=== PATIENT | male | born 1965 | race African-American/Black ===

== ENCOUNTER 2016-12-15 22:03 | Emergency (ER) | payer OTHER ==
[~2016-12-15] VITALS: Ht 188 cm; Wt 68.0 kg
[~2016-12-15 22:03] MED LIST: DIPH25CA83 PO; HYDR2TAB34 PO; OLAN5TAB26 PO; ONDA4TAB51 PO; Olanzapine PO; P20 PO; QUET300T2 PO; SULF500T PO; TRAM50TA3 PO
[2016-12-15] MEDS ORDERED: MORPHINE SULFATE 4 MG/ML CPJ (NOT FOR IM USE) IV STA (23:07)
[2016-12-15] MEDS ORDERED: SODIUM CHLORIDE 0.9% 1,000 ML IV ONE (23:07)
[2016-12-15] MEDS ORDERED: ONDANSETRON HCL 4MG/2ML VIAL IV STA (23:07)
[2016-12-15 23:36] LABS: BASOPHILS % 1.1 % (0.0-2.0); EOSINOPHILS % 3.2 % (0.0-5.0); HEMATOCRIT. 40.4 % (42.0-52.0); HEMOGLOBIN. 13.4 g/dL (14.0-18.0); LYMPHOCYTES % 39.8 % (20.0-50.0); MEAN CORPUSCULAR HEMOGLOBIN 28.2 pg (28.0-32.0); MEAN CORPUSCULAR VOLUME 85.4 fL (80.0-94.0); MEAN PLATELET VOLUME 8.4 fl (7.4-10.4); MONOCYTES % 13.2 % (2.0-8.0); NEUTROPHILS % 42.7 % (40.0-76.0); PLATELET 229 x1000/uL (130-400); RED BLOOD CELL COUNT 4.73 mill/uL (4.7-6.1); RED CELL DISTRIBUTION WIDTH 14.6 % (11.6-14.6); WHITE BLOOD COUNT 5.8 x1000/uL (4.5-11.0)
[2016-12-15 23:36] LABS: CLARITY URINE CLEAR (CLEAR); COLOR URINE YELLOW (YELLOW); GLUCOSE URINE NEGATIVE (NEGATIVE); KETONES URINE NEGATIVE (NEGATIVE); LEUKOCYTE ESTERASE URINE NEGATIVE (NEGATIVE); NITRITE URINE NEGATIVE (NEGATIVE); OCCULT BLOOD URINE TRACE (NEGATIVE); PROTEIN URINE NEGATIVE (NEGATIVE); SPECIFIC GRAVITY URINE 1.019 (1.005-1.030); UROBILINOGEN URINE 0.2 E.U./dL (0.2-1.0)
[2016-12-15 23:44] LABS: ALANINE AMINOTRANSFERASE 24 IU/L (13-61); ALBUMIN 3.5 g/dL (3.4-5.0); ANION GAP 13; CALCIUM 8.5 mg/dL (8.5-10.1); CARBON DIOXIDE 28 mEq/L (21-32); CHLORIDE 106 mEq/L (98-107); INDEX HEMOLYSI 1 (1-3); INDEX ICTERIC 1 (1-4); INDEX LIPEMIC 1 (1-3); LIPASE 449 IU/L (73-393); UREA NITROGEN BLOOD 12 mg/dL (7-21); eGFR > 60 mL/min (>60)
[2016-12-15 23:54] LABS: PROTHROMBIN TIME 10.1 sec
[2016-12-16] MEDS ORDERED: MAGNESIUM/ALUMINUM HYDROXIDE/SIMETHICONE 30ML UDC PO ONE (00:15)
[2016-12-16] MEDS ORDERED: VISCOUS LIDOCAINE 2% 15 ML UDC MM ONE (00:15)
[2016-12-16] MEDS ORDERED: MORPHINE SULFATE 10 MG/ML CPJ IM ONE (00:15)
[2016-12-16] MEDS ORDERED: ONDANSETRON HCL 4MG/2ML VIAL IM ONE (00:15)
[2016-12-16 00:17] LABS: BACTERIA URINE NONE SEEN; SQUAMOUS EPITHELIAL CELL URINE FEW /lpf (RARE/1+); WBC URINE 0-2 /hpf (0-2)
[2016-12-16] MEDS ORDERED: ACETAMINOPHEN WITH CODEINE 300/30MG TABLET PO ONE (01:30)
[2016-12-16 02:34] VITALS: BP 120/59
== END 2016-12-16 02:36 | disposition home or self-care (01) ==
LOC: ER 22:59
DX: R10.9 Unspecified abdominal pain (principal); R33.9 Retention of urine, unspecified; K50.90 Crohn's disease, unspecified, without complications; I25.2 Old myocardial infarction; F17.200 Nicotine dependence, unspecified, uncomplicated; F10.10 Alcohol abuse, uncomplicated; F12.90 Cannabis use, unspecified, uncomplicated; Z86.73 Personal history of transient ischemic attack (TIA), and cerebral infarction without residual deficits
CPT/HCPCS: 36415; 51702; 71010; 80053; 81001; 83690; 85025; 85610; 96374; 96375; 99285; J2270; J2405; J7030; Z7610

== ENCOUNTER 2017-03-15 11:51 | Emergency (ER) | payer OTHER ==
[~2017-03-15] VITALS: Ht 188 cm; Wt 71.0 kg
[2017-03-15] MEDS ORDERED: FAMOTIDINE 20MG/2ML VIAL IV STA (12:44)
[2017-03-15] MEDS ORDERED: ONDANSETRON HCL 4MG/2ML VIAL IV STA (12:44)
[2017-03-15] MEDS ORDERED: SODIUM CHLORIDE 0.9% 1,000 ML IV ONE (12:44)
[2017-03-15] MEDS ORDERED: KETOROLAC 30MG/ML VIAL IV STA (12:44)
[2017-03-15 13:01] LABS: CLARITY URINE CLEAR (CLEAR); COLOR URINE YELLOW (YELLOW); GLUCOSE URINE NEGATIVE (NEGATIVE); KETONES URINE NEGATIVE (NEGATIVE); LEUKOCYTE ESTERASE URINE NEGATIVE (NEGATIVE); NITRITE URINE NEGATIVE (NEGATIVE); OCCULT BLOOD URINE TRACE (NEGATIVE); PH URINE >=9.0 (4.5-8.0); PROTEIN URINE NEGATIVE (NEGATIVE); SPECIFIC GRAVITY URINE 1.014 (1.005-1.030); UROBILINOGEN URINE 0.2 E.U./dL (0.2-1.0)
[2017-03-15 13:04] LABS: BACTERIA URINE NONE SEEN; CALCIUM PHOSPHATE CRYSTALS UR NONE SEEN /lpf; SQUAMOUS EPITHELIAL CELL URINE NONE SEEN /lpf (RARE/1+); WAXY CASTS URINE NONE SEEN /lpf; WBC URINE NONE SEEN /hpf (0-2); YEAST URINE NONE SEEN
[2017-03-15 13:24] LABS: BASOPHILS % 1.2 % (0.0-2.0); EOSINOPHILS % 1.7 % (0.0-5.0); HEMATOCRIT. 38.8 % (42.0-52.0); HEMOGLOBIN. 12.9 g/dL (14.0-18.0); LYMPHOCYTES % 32.5 % (20.0-50.0); MEAN CORPUSCULAR HEMOGLOBIN 28.5 pg (28.0-32.0); MEAN CORPUSCULAR HGB CONC 33.3 g/dL (31.0-37.0); MEAN CORPUSCULAR VOLUME 85.6 fL (80.0-94.0); MEAN PLATELET VOLUME 7.9 fl (7.4-10.4); MONOCYTES % 11.9 % (2.0-8.0); NEUTROPHILS % 52.7 % (40.0-76.0); PLATELET 233 x1000/uL (130-400); RED BLOOD CELL COUNT 4.53 mill/uL (4.7-6.1); RED CELL DISTRIBUTION WIDTH 14.1 % (11.6-14.6)
[2017-03-15 13:34] LABS: PROTHROMBIN TIME 10.4 sec
[2017-03-15 13:39] LABS: ALANINE AMINOTRANSFERASE 26 IU/L (13-61); ALBUMIN 3.5 g/dL (3.4-5.0); ANION GAP 10; CALCIUM 8.8 mg/dL (8.5-10.1); CARBON DIOXIDE 28 mEq/L (21-32); CHLORIDE 106 mEq/L (98-107); INDEX HEMOLYSI 1 (1-3); INDEX ICTERIC 1 (1-4); INDEX LIPEMIC 1 (1-3); LIPASE 86 IU/L (73-393); UREA NITROGEN BLOOD 8 mg/dL (7-21); eGFR > 60 mL/min (>60)
[2017-03-15] MEDS ORDERED: TRAMADOL 50MG TABLET PO ONE (15:30)
[2017-03-15 15:33] VITALS: BP 140/80
== END 2017-03-15 16:44 | disposition home or self-care (01) ==
LOC: ER 12:25
DX: N20.0 Calculus of kidney (principal); K59.00 Constipation, unspecified; F20.9 Schizophrenia, unspecified; I25.2 Old myocardial infarction; F17.200 Nicotine dependence, unspecified, uncomplicated; F12.10 Cannabis abuse, uncomplicated; F41.9 Anxiety disorder, unspecified; K50.90 Crohn's disease, unspecified, without complications; Z86.73 Personal history of transient ischemic attack (TIA), and cerebral infarction without residual deficits; Z79.899 Other long term (current) drug therapy
CPT/HCPCS: 36415; 74176; 80053; 81001; 83690; 85025; 85610; 96361; 96374; 96375; 99285; J1885; J2405; J3490; J7030; Z7610

== ENCOUNTER 2017-06-19 22:52 | Emergency (ER) | payer OTHER ==
[~2017-06-19] VITALS: Ht 182.9 cm; Wt 76.0 kg
[~2017-06-19 22:52] MED LIST changes: -HYDR2TAB34 PO; +HYDR2TAB4 PO
[2017-06-20] MEDS ORDERED: ONDANSETRON HCL 4MG/2ML VIAL IV STA (01:22)
[2017-06-20] MEDS ORDERED: KETOROLAC 30MG/ML VIAL IV STA (01:22)
[2017-06-20] MEDS ORDERED: VANCOMYCIN 1 G PREMIX 200 ML IV ONE (01:30)
[2017-06-20 03:34] VITALS: BP 118/57
== END 2017-06-20 08:02 | disposition home or self-care (01) ==
LOC: ER 06-20 08:02
DX: L02.01 Cutaneous abscess of face (principal); F20.9 Schizophrenia, unspecified; K50.90 Crohn's disease, unspecified, without complications; I25.2 Old myocardial infarction; F12.10 Cannabis abuse, uncomplicated; F17.200 Nicotine dependence, unspecified, uncomplicated; Z86.73 Personal history of transient ischemic attack (TIA), and cerebral infarction without residual deficits; Z98.890 Other specified postprocedural states
CPT/HCPCS: 96365; 96366; 96375; 99285; J1885; J2405; J3370; Z7610

== ENCOUNTER 2017-07-21 11:57 | Inpatient (IN) | payer MEDICAID, OTHER ==
[2017-07-21] VITALS: BP 129/68
[~2017-07-21] VITALS: Ht 188 cm; Wt 65.3 kg
[2017-07-21] MEDS ORDERED: SODIUM CHLORIDE 0.9% 1,000 ML IV ONE (12:36)
[2017-07-21 12:59] LABS: BASOPHILS % 0.9 % (0.0-2.0); EOSINOPHILS % 0.5 % (0.0-5.0); HEMATOCRIT. 38.9 % (42.0-52.0); LYMPHOCYTES % 26.7 % (20.0-50.0); MEAN CORPUSCULAR HEMOGLOBIN 28.4 pg (28.0-32.0); MEAN CORPUSCULAR VOLUME 85.1 fL (80.0-94.0); MEAN PLATELET VOLUME 7.8 fl (7.4-10.4); MONOCYTES % 11.7 % (2.0-8.0); NEUTROPHILS % 60.2 % (40.0-76.0); PLATELET 208 x1000/uL (130-400); RED BLOOD CELL COUNT 4.58 mill/uL (4.7-6.1); RED CELL DISTRIBUTION WIDTH 15.2 % (11.6-14.6)
[2017-07-21 13:09] LABS: PROTHROMBIN TIME 10.7 sec (9.4-11.6)
[2017-07-21 13:20] LABS: CARBON DIOXIDE 24 mEq/L (21-32); CHLORIDE 110 mEq/L (98-107)
[2017-07-21] MEDS ORDERED: ONDANSETRON HCL 4MG/2ML VIAL IV ONE (13:45)
[2017-07-21] MEDS ORDERED: MORPHINE SULFATE 4 MG/ML CPJ (NOT FOR IM USE) IV ONE (13:45)
[2017-07-21] MEDS ORDERED: DIPHENHYDRAMINE 50MG/ML VIAL ONE (14:07)
[2017-07-21] MEDS ORDERED: HYDROMORPHONE HCL/PF 2MG/ML CPJ IV ONE ×2 (15:00→18:00)
[2017-07-21] MEDS ORDERED: DIPHENHYDRAMINE 50MG/ML VIAL IV ONE ×2 (15:00→18:00)
[2017-07-21 17:59] LABS: CLARITY URINE CLEAR (CLEAR); COLOR URINE YELLOW (YELLOW); GLUCOSE URINE NEGATIVE (NEGATIVE); KETONES URINE 1+ (NEGATIVE); LEUKOCYTE ESTERASE URINE 1+ (NEGATIVE); NITRITE URINE NEGATIVE (NEGATIVE); OCCULT BLOOD URINE 2+ (NEGATIVE); PH URINE 5.5 (4.5-8.0); PROTEIN URINE NEGATIVE (NEGATIVE); UROBILINOGEN URINE 0.2 E.U./dL (0.2-1.0)
[2017-07-21] MEDS ORDERED: METOCLOPRAMIDE HCL 10MG/2ML VIAL IV ONE (18:00)
[2017-07-21] MEDS ORDERED: HYDROMORPHONE HCL/PF 2MG/ML CPJ IV NR (18:15)
[2017-07-21] MEDS ORDERED: LEVOFLOXACIN 500MG PREMIX 100 ML IV ONE (20:00)
[2017-07-21] MEDS ORDERED: LORAZEPAM 2MG/ML CPJ IV ONE (20:00)
[2017-07-21] MEDS ORDERED: METRONIDAZOLE 500 MG PREMIX 100 ML IV ONE (20:00)
[2017-07-21 22:00] VITALS: BP 126/75
[2017-07-21 22:30] VITALS: BP 126/75
[2017-07-21] MEDS ORDERED: ONDANSETRON HCL 4MG/2ML VIAL IV PRN (23:45)
[2017-07-21] MEDS ORDERED: IPRATROPIUM/ALBUTEROL 0.5-3(2.5)MG/3ML NEB INH PRN (23:45)
[2017-07-21] MEDS ORDERED: ACETAMINOPHEN 325MG TABLET PO PRN (23:45)
[2017-07-21] MEDS ORDERED: MAGNESIUM/ALUMINUM HYDROXIDE/SIMETHICONE 30ML UDC PO PRN (23:45)
[2017-07-21] MEDS ORDERED: CLONIDINE 0.1MG TABLET PO PRN (23:45)
[2017-07-21] MEDS ORDERED: HYDROCODONE/ACETAMINOPHEN 5/325MG TABLET PO PRN (23:45)
[2017-07-22] MEDS: MESALAMINE 1000MG SUPPOSITORY PR SCH ×3 (01:42→17:07)
[2017-07-22] MEDS: SODIUM CHLORIDE 0.9% 1,000 ML IV SCH ×2 (01:43→23:01)
[2017-07-22 04:00] VITALS: BP 130/67
[2017-07-22 07:34] LABS: BASOPHILS % 0.8 % (0.0-2.0); HEMATOCRIT. 37.5 % (42.0-52.0); HEMOGLOBIN. 12.9 g/dL (14.0-18.0); LYMPHOCYTES % 27.7 % (20.0-50.0); MEAN CORPUSCULAR HEMOGLOBIN 29.3 pg (28.0-32.0); MEAN PLATELET VOLUME 8.7 fl (7.4-10.4); MONOCYTES % 14.5 % (2.0-8.0); PLATELET 187 x1000/uL (130-400); RED BLOOD CELL COUNT 4.41 mill/uL (4.7-6.1); RED CELL DISTRIBUTION WIDTH 15.3 % (11.6-14.6)
[2017-07-22 09:14] LABS: C REACTIVE PROTEIN QUANT 1.1 mg/L (0.0-3.0); CARBON DIOXIDE 26 mEq/L (21-32); CHLORIDE 105 mEq/L (98-107); HDL CHOLESTEROL 75 mg/dL (40-59); LDL CHOLESTEROL 69 mg/dL (5-100)
[2017-07-22] MEDS ORDERED: MORPHINE SULFATE 2 MG/ML CPJ (NOT FOR IM USE) IV PRN (09:30)
[2017-07-22] MEDS: DIPHENHYDRAMINE 25MG CAPSULE PO PRN ×2 (10:52→18:39)
[2017-07-22 11:04] LABS: *AMPHETAMINES SCREEN URINE NEGATIVE (NEGATIVE); *BARBITURATES SCREEN URINE PRESUMTIVE POSITIVE (NEGATIVE); *BENZODIAZEPINES SCREEN URINE NEGATIVE (NEGATIVE); *COCAINE SCREEN URINE NEGATIVE (NEGATIVE); CANNABINOID URINE SCREEN PRESUMTIVE POSITIVE (NEGATIVE); METHADONE URINE SCREEN NEGATIVE (NEGATIVE); OPIATES URINE SCREEN PRESUMTIVE POSITIVE (NEGATIVE); PHENCYCLIDINE URINE SCREEN NEGATIVE (NEGATIVE)
[2017-07-22] MEDS ORDERED: OLANZAPINE PO SCH (11:45)
[2017-07-22] MEDS ORDERED: PREDNISONE 20MG TABLET PO SCH (11:45)
[2017-07-22] MEDS: SULFASALAZINE 500MG TABLET PO SCH ×2 (11:58→17:07)
[2017-07-22 12:00] VITALS: BP 115/79
[2017-07-22] MEDS ORDERED: GLYCOPYRROLATE 0.2 MG/ML 2ML VIAL ONE (12:57)
[2017-07-22] MEDS ORDERED: DEXAMETHASONE 4MG/ML 1ML VIAL ONE (12:57)
[2017-07-22] MEDS: HYDROCODONE/ACETAMINOPHEN 10/325MG TABLET PO PRN ×3 (13:07→22:13)
[2017-07-22] MEDS: METHYLPREDNISOLONE SOD SUCC 40 MG/ML VIAL IV SCH ×2 (13:20→22:54)
[2017-07-22] MEDS ORDERED: ONDANSETRON HCL 4MG/2ML VIAL ONE (15:16)
[2017-07-22 16:00] VITALS: BP 120/79
[2017-07-22 20:00] VITALS: BP 126/57
[2017-07-22] MEDS ORDERED: OLANZAPINE 5MG TABLET PO SCH (21:00)
[2017-07-22] MEDS ORDERED: LEVOFLOXACIN 500MG PREMIX 100 ML IV SCH (21:00)
[2017-07-22] MEDS ORDERED: QUETIAPINE FUMARATE 100MG TABLET PO SCH (21:00)
[2017-07-22] MEDS: QUETIAPINE FUMARATE 100MG TABLET PO SCH (22:12)
[2017-07-23] VITALS: BP 97/58
[2017-07-23] MEDS: DIPHENHYDRAMINE 25MG CAPSULE PO PRN (00:32)
[2017-07-23 04:00] VITALS: BP 117/78
[2017-07-23] MEDS: METHYLPREDNISOLONE SOD SUCC 40 MG/ML VIAL IV SCH ×2 (05:25→14:00)
[2017-07-23] MEDS: MESALAMINE 1000MG SUPPOSITORY PR SCH (05:25)
[2017-07-23] MEDS: HYDROCODONE/ACETAMINOPHEN 10/325MG TABLET PO PRN ×2 (06:00→11:58)
[2017-07-23 08:00] VITALS: BP 101/54
[2017-07-23 09:21] LABS: BASOPHILS % 0.4 % (0.0-2.0); HEMATOCRIT. 41.9 % (42.0-52.0); HEMOGLOBIN. 13.8 g/dL (14.0-18.0); LYMPHOCYTES % 16.5 % (20.0-50.0); MEAN CORPUSCULAR HEMOGLOBIN 28.2 pg (28.0-32.0); MONOCYTES % 7.5 % (2.0-8.0); NEUTROPHILS % 75.6 % (40.0-76.0); RED BLOOD CELL COUNT 4.88 mill/uL (4.7-6.1); RED CELL DISTRIBUTION WIDTH 15.4 % (11.6-14.6)
[2017-07-23 09:32] LABS: CARBON DIOXIDE 23 mEq/L (21-32); CHLORIDE 103 mEq/L (98-107)
[2017-07-23] MEDS: QUETIAPINE FUMARATE 100MG TABLET PO SCH (10:00)
[2017-07-23] MEDS: SULFASALAZINE 500MG TABLET PO SCH ×2 (10:00→13:00)
[2017-07-23] MEDS ORDERED: P20 PO (13:58)
[2017-07-23] MEDS ORDERED: SULF500T PO (13:58)
[2017-07-23 15:03] VITALS: BP 99/54
== END 2017-07-23 15:30 | disposition home or self-care (01) | DRG 245 ==
LOC: ER 12:47 → 5WST 20:06 → ENRESERV 21:20
PROVIDERS: ADMIT Internal Medicine; ATTEND Internal Medicine
DX: K50.90 Crohn's disease, unspecified, without complications (principal); D63.8 Anemia in other chronic diseases classified elsewhere; N39.0 Urinary tract infection, site not specified; F12.90 Cannabis use, unspecified, uncomplicated; K62.89 Other specified diseases of anus and rectum; E78.5 Hyperlipidemia, unspecified; F20.9 Schizophrenia, unspecified; E78.00 Pure hypercholesterolemia, unspecified; F17.200 Nicotine dependence, unspecified, uncomplicated; Z86.73 Personal history of transient ischemic attack (TIA), and cerebral infarction without residual deficits; Z90.49 Acquired absence of other specified parts of digestive tract; Z72.89 Other problems related to lifestyle; I25.2 Old myocardial infarction; Z79.899 Other long term (current) drug therapy; K62.5 Hemorrhage of anus and rectum
CPT/HCPCS: 36415; 74176; 80048; 80053; 80061; 80305; 81001; 82270; 83690; 83735; 84443; 85025; 85610; 85651; 86140; 86850; 86900; 87015; 87040; 87045; 87086; 87427; 87449; 87493; 93970; 96361; 96365; 96375; 96376; 99285; J1100; J1170; J1200; J1956; J2060; J2270; J2405; J2765; J2920; J3490; J7030; J7512; Q0163

== ENCOUNTER 2017-11-07 16:05 | Emergency (ER) | payer MEDICAID ==
[~2017-11-07] VITALS: Ht 188 cm; Wt 68.8 kg
[~2017-11-07 16:05] MED LIST changes: -HYDR2TAB4 PO
[2017-11-07] MEDS ORDERED: KETOROLAC 60MG/2ML VIAL IM ONE (17:15)
[2017-11-07 17:45] LABS: BASOPHILS % 1.2 % (0.0-2.0); EOSINOPHILS % 2.9 % (0.0-5.0); HEMATOCRIT. 37.5 % (42.0-52.0); HEMOGLOBIN. 12.4 g/dL (14.0-18.0); LYMPHOCYTES % 31.8 % (20.0-50.0); MEAN CORPUSCULAR HEMOGLOBIN 28.2 pg (28.0-32.0); MEAN CORPUSCULAR VOLUME 85.3 fL (80.0-94.0); MEAN PLATELET VOLUME 7.7 fl (7.4-10.4); MONOCYTES % 12.4 % (2.0-8.0); NEUTROPHILS % 51.7 % (40.0-76.0); PLATELET 222 x1000/uL (130-400)
[2017-11-07 17:52] LABS: PROTHROMBIN TIME 10.2 sec (9.4-11.6)
[2017-11-07 18:01] LABS: CARBON DIOXIDE 26 mEq/L (21-32); CHLORIDE 106 mEq/L (98-107); ETHANOL BLOOD < 10 mg/dL; TROPONIN I < 0.02 ng/mL (0.00-0.04)
[2017-11-07 18:21] VITALS: BP 124/66
[2017-11-07] MEDS ORDERED: ACETAMINOPHEN 650MG/20.3ML UDC PO ONE (18:30)
== END 2017-11-07 18:51 | disposition left against medical advice (07) ==
LOC: ER 16:39 → CANBEDREQ 11-08 01:18
DX: I63.9 Cerebral infarction, unspecified (principal); R51 Headache; R20.0 Anesthesia of skin; R53.1 Weakness; R47.81 Slurred speech; F12.10 Cannabis abuse, uncomplicated; E78.00 Pure hypercholesterolemia, unspecified; I25.2 Old myocardial infarction; F20.9 Schizophrenia, unspecified; Z86.73 Personal history of transient ischemic attack (TIA), and cerebral infarction without residual deficits
CPT/HCPCS: 36415; 70450; 71010; 73030; 80053; 82962; 84484; 85025; 85610; 93005; 96372; 99285; G0482; J1885; Z7610

== ENCOUNTER 2018-06-01 11:11 | Emergency (ER) | payer MEDICAID ==
[~2018-06-01] VITALS: Ht 188 cm; Wt 66.0 kg
[2018-06-01 11:45] LABS: BASOPHILS % 0.9 % (0.0-2.0); EOSINOPHILS % 0.7 % (0.0-5.0); HEMATOCRIT. 39.1 % (42.0-52.0); HEMOGLOBIN. 12.9 g/dL (14.0-18.0); LYMPHOCYTES % 27.4 % (20.0-50.0); MEAN CORPUSCULAR HEMOGLOBIN 28.7 pg (28.0-32.0); MEAN CORPUSCULAR VOLUME 86.7 fL (80.0-94.0); MEAN PLATELET VOLUME 8.1 fl (7.4-10.4); MONOCYTES % 9.6 % (2.0-8.0); NEUTROPHILS % 61.4 % (40.0-76.0); PLATELET 228 x1000/uL (130-400); RED BLOOD CELL COUNT 4.51 mill/uL (4.7-6.1); RED CELL DISTRIBUTION WIDTH 14.7 % (11.6-14.6)
[2018-06-01 11:49] LABS: CHLORIDE 106 mEq/L (98-107)
[2018-06-01] MEDS ORDERED: ALBUTEROL (0.083%) 2.5MG/3ML NEB HHN STA (12:51)
[2018-06-01] MEDS ORDERED: IPRATROPIUM BROMIDE (0.02%) 0.5MG/2.5ML NEB HHN STA (12:51)
[2018-06-01] MEDS ORDERED: METHYLPREDNISOLONE SOD SUCC 125 MG/2 ML VIAL IV ONE (13:00)
[2018-06-01 13:06] LABS: CLARITY URINE CLEAR (CLEAR); COLOR URINE PALE YELLOW (YELLOW); KETONES URINE NEGATIVE (NEGATIVE); LEUKOCYTE ESTERASE URINE NEGATIVE (NEGATIVE); NITRITE URINE NEGATIVE (NEGATIVE); OCCULT BLOOD URINE TRACE (NEGATIVE); PROTEIN URINE NEGATIVE (NEGATIVE); SPECIFIC GRAVITY URINE 1.006 (1.005-1.030); UROBILINOGEN URINE 0.2 E.U./dL (0.2-1.0)
[2018-06-01 13:31] LABS: CHLORIDE 105 mEq/L (98-107)
[2018-06-01] MEDS ORDERED: KETOROLAC 30MG/ML VIAL IV ONE (13:45)
[2018-06-01] MEDS ORDERED: LORAZEPAM 2MG/ML CPJ IV ONE ×2 (13:45→18:15)
[2018-06-01] MEDS ORDERED: ASPIRIN 325MG EC TABLET PO ONE (15:45)
[2018-06-01] MEDS ORDERED: NITROGLYCERIN OINT 1GM/INCH UDPKT TD ONE (18:15)
[2018-06-01] MEDS ORDERED: MORPHINE SULFATE 2 MG/ML CPJ (NOT FOR IM USE) IV ONE (18:15)
[2018-06-01] MEDS ORDERED: MORPHINE SULFATE 4 MG/ML CPJ (NOT FOR IM USE) IV ONE (18:30)
[2018-06-01 22:00] VITALS: BP 108/62
[2018-06-01] MEDS ORDERED: MORPHINE SULFATE 4 MG/ML CPJ (NOT FOR IM USE) IV PRN (23:15)
== END 2018-06-02 00:10 | disposition left against medical advice (07) ==
LOC: ER 11:38 → EDBEDREQTM 18:21 → EDBEDREQ 18:21 → ENRESERV 23:04 → CANRESERV 23:04 → EDBEDREQSVC 23:08 → ER 06-02 00:10 → CANBEDREQ 06-03 12:09
DX: J44.1 Chronic obstructive pulmonary disease with (acute) exacerbation (principal); J45.909 Unspecified asthma, uncomplicated; R07.89 Other chest pain; R79.89 Other specified abnormal findings of blood chemistry; I10 Essential (primary) hypertension; E78.00 Pure hypercholesterolemia, unspecified; F20.89 Other schizophrenia; F17.200 Nicotine dependence, unspecified, uncomplicated; F12.10 Cannabis abuse, uncomplicated; Z79.82 Long term (current) use of aspirin
CPT/HCPCS: 36415; 71045; 80053; 81003; 83605; 83690; 83880; 84484; 85025; 87040; 93005; 94640; 96374; 96375; 96376; 99285; C1893; J1885; J2060; J2270; J2930; J7611; Z7610

== ENCOUNTER 2018-06-11 18:29 | Inpatient (IN) | payer MEDICAID ==
[~2018-06-11] VITALS: Ht 172.7 cm; Wt 69.2 kg
[2018-06-11 20:02] LABS: BASOPHILS % 0.8 % (0.0-2.0); EOSINOPHILS % 0.9 % (0.0-5.0); HEMATOCRIT. 35.4 % (42.0-52.0); HEMOGLOBIN. 11.9 g/dL (14.0-18.0); LYMPHOCYTES % 42.4 % (20.0-50.0); MEAN CORPUSCULAR HEMOGLOBIN 28.7 pg (28.0-32.0); MEAN CORPUSCULAR VOLUME 85.6 fL (80.0-94.0); MEAN PLATELET VOLUME 8.2 fl (7.4-10.4); NEUTROPHILS % 44.9 % (40.0-76.0); PLATELET 241 x1000/uL (130-400); RED BLOOD CELL COUNT 4.14 mill/uL (4.7-6.1); RED CELL DISTRIBUTION WIDTH 14.3 % (11.6-14.6)
[2018-06-11 20:07] LABS: CHLORIDE 108 mEq/L (98-107)
[2018-06-11 20:10] LABS: PROTHROMBIN TIME 10.1 sec (9.4-11.6)
[2018-06-11] MEDS ORDERED: DIAZEPAM 5 MG TABLET PO ONE (20:30)
[2018-06-11] MEDS ORDERED: ENOXAPARIN 100MG/ML SYR SUBCUT ONE (22:30)
[2018-06-11] MEDS ORDERED: DIPHENHYDRAMINE 50MG/ML VIAL IV ONE (22:30)
[2018-06-11] MEDS ORDERED: ASPIRIN 81MG TABLET PO ONE (22:30)
[2018-06-12] VITALS (10 sets, daily range): BP systolic 77–145; BP diastolic 46–83
[2018-06-12] MEDS ORDERED: RISP2TAB22 PO (01:24)
[2018-06-12] MEDS: NITROGLYCERIN OINT 1GM/INCH UDPKT TD SCH ×3 (05:34→21:07)
[2018-06-12] MEDS: MORPHINE SULFATE 4 MG/ML CPJ (NOT FOR IM USE) IV PRN ×3 (05:35→17:55)
[2018-06-12] MEDS ORDERED: MORPHINE SULFATE 4 MG/ML CPJ (NOT FOR IM USE) IV NR (06:53)
[2018-06-12 06:54] LABS: BASOPHILS % 1.3 % (0.0-2.0); EOSINOPHILS % 2.1 % (0.0-5.0); HEMATOCRIT. 37.4 % (42.0-52.0); HEMOGLOBIN. 12.5 g/dL (14.0-18.0); LYMPHOCYTES % 49.5 % (20.0-50.0); MEAN CORPUSCULAR HEMOGLOBIN 28.6 pg (28.0-32.0); MEAN CORPUSCULAR VOLUME 85.7 fL (80.0-94.0); MEAN PLATELET VOLUME 8.7 fl (7.4-10.4); MONOCYTES % 11.1 % (2.0-8.0); PLATELET 225 x1000/uL (130-400); RED BLOOD CELL COUNT 4.36 mill/uL (4.7-6.1); RED CELL DISTRIBUTION WIDTH 14.3 % (11.6-14.6)
[2018-06-12] MEDS: RISPERIDONE 1MG TABLET PO SCH ×2 (06:58→21:06)
[2018-06-12 07:27] LABS: CHLORIDE 108 mEq/L (98-107)
[2018-06-12] MEDS: ASPIRIN 325MG EC TABLET PO SCH (08:40)
[2018-06-12] MEDS: METOPROLOL TARTRATE 50MG TABLET PO SCH ×2 (08:40→21:07)
[2018-06-12] MEDS ORDERED: ENOXAPARIN 60MG/0.6ML SYR SUBCUT SCH (09:00)
[2018-06-12] MEDS ORDERED: LIDOCAINE HCL 1% 20ML VIAL (Pyxis) INJ ONE (13:51)
[2018-06-12] MEDS ORDERED: IOHEXOL-350 100 ML BOTTLE ONE (15:02)
[2018-06-12] MEDS: DEXT 5%/0.45% NACL 1000ML 1,000 ML IV SCH (17:16)
[2018-06-12] MEDS: DIPHENHYDRAMINE 50MG/ML VIAL IV PRN (21:06)
[2018-06-12] MEDS: ATORVASTATIN CALCIUM 20MG TABLET PO SCH (21:07)
[2018-06-13] VITALS (12 sets, daily range): BP systolic 98–141; BP diastolic 20–88
[2018-06-13] MEDS: MORPHINE SULFATE 4 MG/ML CPJ (NOT FOR IM USE) IV PRN ×4 (00:39→22:43)
[2018-06-13] MEDS: DEXT 5%/0.45% NACL 1000ML 1,000 ML IV SCH ×3 (01:30→20:12)
[2018-06-13] MEDS: NITROGLYCERIN OINT 1GM/INCH UDPKT TD SCH ×3 (06:00→22:00)
[2018-06-13 06:24] LABS: BASOPHILS % 1.2 % (0.0-2.0); EOSINOPHILS % 1.7 % (0.0-5.0); HEMATOCRIT. 35.5 % (42.0-52.0); HEMOGLOBIN. 11.8 g/dL (14.0-18.0); LYMPHOCYTES % 57.4 % (20.0-50.0); MEAN CORPUSCULAR HEMOGLOBIN 28.6 pg (28.0-32.0); MEAN CORPUSCULAR VOLUME 86.4 fL (80.0-94.0); MEAN PLATELET VOLUME 8.9 fl (7.4-10.4); MONOCYTES % 9.5 % (2.0-8.0); NEUTROPHILS % 30.2 % (40.0-76.0); PLATELET 208 x1000/uL (130-400); RED BLOOD CELL COUNT 4.11 mill/uL (4.7-6.1); RED CELL DISTRIBUTION WIDTH 14.2 % (11.6-14.6)
[2018-06-13 06:51] LABS: CHLORIDE 106 mEq/L (98-107)
[2018-06-13] MEDS ORDERED: ENOXAPARIN 40MG/0.4ML SYR SUBCUT SCH (09:00)
[2018-06-13] MEDS: METOPROLOL TARTRATE 50MG TABLET PO SCH ×2 (09:00→21:00)
[2018-06-13] MEDS: RISPERIDONE 1MG TABLET PO SCH ×2 (09:28→20:11)
[2018-06-13] MEDS: ASPIRIN 325MG EC TABLET PO SCH (09:28)
[2018-06-13] MEDS ORDERED: ENOXAPARIN 30MG/0.3ML SYR SUBCUT SCH (11:30)
[2018-06-13] MEDS: DIPHENHYDRAMINE 50MG/ML VIAL IV PRN (13:14)
[2018-06-13] MEDS: ENOXAPARIN 80MG/0.8ML SYR SUBCUT SCH (20:11)
[2018-06-13] MEDS: ATORVASTATIN CALCIUM 20MG TABLET PO SCH (22:31)
[2018-06-14] VITALS (11 sets, daily range): BP systolic 110–139; BP diastolic 58–89
[2018-06-14] MEDS: MORPHINE SULFATE 4 MG/ML CPJ (NOT FOR IM USE) IV PRN ×3 (04:04→18:53)
[2018-06-14] MEDS: NITROGLYCERIN OINT 1GM/INCH UDPKT TD SCH ×2 (05:35→13:39)
[2018-06-14 06:36] LABS: EOSINOPHILS % 2.6 % (0.0-5.0); HEMATOCRIT. 36.7 % (42.0-52.0); HEMOGLOBIN. 12.2 g/dL (14.0-18.0); LYMPHOCYTES % 53.8 % (20.0-50.0); MEAN CORPUSCULAR HEMOGLOBIN 28.5 pg (28.0-32.0); MEAN CORPUSCULAR VOLUME 85.9 fL (80.0-94.0); MEAN PLATELET VOLUME 8.7 fl (7.4-10.4); MONOCYTES % 11.1 % (2.0-8.0); NEUTROPHILS % 31.5 % (40.0-76.0); PLATELET 209 x1000/uL (130-400); RED BLOOD CELL COUNT 4.27 mill/uL (4.7-6.1)
[2018-06-14] MEDS: DEXT 5%/0.45% NACL 1000ML 1,000 ML IV SCH (06:44)
[2018-06-14 07:05] LABS: CHLORIDE 105 mEq/L (98-107)
[2018-06-14] MEDS: METOPROLOL TARTRATE 50MG TABLET PO SCH (08:28)
[2018-06-14] MEDS: ASPIRIN 325MG EC TABLET PO SCH (08:29)
[2018-06-14] MEDS: RISPERIDONE 1MG TABLET PO SCH (08:29)
[2018-06-14] MEDS: ENOXAPARIN 80MG/0.8ML SYR SUBCUT SCH (08:29)
[2018-06-14] MEDS ORDERED: OMEPRAZOLE 20MG CAPSULE EXTENDED RELEASE PO SCH (09:00)
[2018-06-14] MEDS ORDERED: POTASSIUM CHLORIDE 20MEQ TABLET SR PO NR (09:00)
[2018-06-14] MEDS: DIPHENHYDRAMINE 50MG/ML VIAL IV PRN (13:39)
[2018-06-14] MEDS ORDERED: LORAZEPAM 2MG/ML CPJ IV PRN (19:00)
[2018-06-14] MEDS ORDERED: DIPHENHYDRAMINE 50MG/ML VIAL IV PRN (20:00)
[2018-06-14] MEDS ORDERED: ATORVASTATIN CALCIUM 40MG TABLET PO SCH (21:00)
== END 2018-06-14 20:21 | disposition left against medical advice (07) | DRG 190 ==
LOC: ER 18:29 → 3WST 22:32 → ENRESERV 23:11
PROVIDERS: ADMIT Internal Medicine; ATTEND Internal Medicine
PROC: 02HV33Z Insertion of Infusion Device into Superior Vena Cava, Percutaneous Approach (ICD-10-PCS; principal; 2018-06-11)
PROC: B548ZZA Ultrasonography of Superior Vena Cava, Guidance (ICD-10-PCS; 2018-06-11)
PROC: B5181ZA Fluoroscopy of Superior Vena Cava using Low Osmolar Contrast, Guidance (ICD-10-PCS; 2018-06-11)
DX: I21.4 Non-ST elevation (NSTEMI) myocardial infarction (principal); E87.8 Other disorders of electrolyte and fluid balance, not elsewhere classified; K50.90 Crohn's disease, unspecified, without complications; G90.8 Other disorders of autonomic nervous system; F20.9 Schizophrenia, unspecified; I10 Essential (primary) hypertension; J45.909 Unspecified asthma, uncomplicated; E78.5 Hyperlipidemia, unspecified; F17.210 Nicotine dependence, cigarettes, uncomplicated; F12.90 Cannabis use, unspecified, uncomplicated; D64.9 Anemia, unspecified; E78.00 Pure hypercholesterolemia, unspecified; J44.9 Chronic obstructive pulmonary disease, unspecified
CPT/HCPCS: 36415; 36569; 70551; 71045; 71275; 74176; 76937; 77001; 80048; 80053; 80061; 83880; 84443; 84484; 85025; 85610; 93005; 93306; 93880; 93970; 93971; 96372; 96374; 99291; C1725; J1200; J1650; J2270; J3490; Q9967

== ENCOUNTER 2019-09-03 12:29 | Inpatient (IN) | payer MEDICAID ==
[~2019-09-03] VITALS: Ht 188 cm; Wt 65.3 kg
[~2019-09-03 12:29] MED LIST changes: +RISP2TAB22 PO
[2019-09-03] MEDS ORDERED: ONDANSETRON HCL 4MG/2ML INJ IV STA (13:52)
[2019-09-03] MEDS ORDERED: MORPHINE SULFATE 4 MG/ML CPJ (NOT FOR IM USE) IV STA (13:52)
[2019-09-03] MEDS ORDERED: NITROGLYCERIN 0.4MG TABLET SL SL PRN (14:00)
[2019-09-03] MEDS ORDERED: ASPIRIN 81MG TABLET PO ONE (14:00)
[2019-09-03] MEDS ORDERED: HEPARIN 25,000 UNITS PREMIX 500 ML IV ONE (14:30)
[2019-09-03 14:44] LABS: BASOPHILS % 0.9 % (0.0-2.0); EOSINOPHILS % 0.3 % (0.0-5.0); HEMATOCRIT. 37.8 % (42.0-52.0); HEMOGLOBIN. 12.5 g/dL (14.0-18.0); LYMPHOCYTES % 37.1 % (20.0-50.0); MEAN CORPUSCULAR HEMOGLOBIN 28.8 pg (28.0-32.0); MEAN CORPUSCULAR VOLUME 86.9 fL (80.0-94.0); MEAN PLATELET VOLUME 8.4 fl (7.4-10.4); NEUTROPHILS % 51.7 % (40.0-76.0); PLATELET 217 x1000/uL (130-400); RED BLOOD CELL COUNT 4.35 mill/uL (4.7-6.1); RED CELL DISTRIBUTION WIDTH 14.4 % (11.6-14.6)
[2019-09-03 14:50] LABS: CHLORIDE 107 mEq/L (98-107)
[2019-09-03 14:51] LABS: PARTIAL THROMBOPLASTIN TIME 25.9 sec (23.4-31.0); PROTHROMBIN TIME 10.3 sec (9.6-11.0)
[2019-09-03 14:54] LABS: ETHANOL BLOOD < 10 mg/dL
[2019-09-03] MEDS ORDERED: HEPARIN 25,000 UNITS PREMIX 500 ML IV SCH (15:15)
[2019-09-03] MEDS ORDERED: HEPARIN 60 UNITS/KG BOLUS IV SCH ×2 (15:15)
[2019-09-03] MEDS ORDERED: HEPARIN BOLUS PRN aPTT <30 IV ×2 (15:30)
[2019-09-03] MEDS ORDERED: HEPARIN BOLUS PRN aPTT 30-44 IV ×2 (15:30)
[2019-09-03] MEDS ORDERED: MORPHINE SULFATE 4 MG/ML CPJ (NOT FOR IM USE) IV ONE (16:00)
[2019-09-03 17:30] VITALS: BP 113/74
[2019-09-03 18:00] VITALS: BP 113/75
[2019-09-03] MEDS ORDERED: ONDANSETRON HCL 4MG/2ML INJ IV PRN ×2 (18:45→20:15)
[2019-09-03] MEDS: HYDROMORPHONE HCL/PF 2MG/ML CPJ IM PRN (19:56)
[2019-09-03 20:00] VITALS: BP 133/77
[2019-09-03] MEDS ORDERED: MORPHINE SULFATE 2 MG/ML CPJ (NOT FOR IM USE) IV PRN (20:15)
[2019-09-03] MEDS ORDERED: QUETIAPINE FUMARATE 50MG TABLET PO SCH (21:00)
[2019-09-03] MEDS: RISPERIDONE 1MG TABLET PO SCH (21:05)
[2019-09-03] MEDS: METOPROLOL TARTRATE 25MG TABLET PO SCH (21:06)
[2019-09-03 22:00] VITALS: BP 122/66
[2019-09-03] MEDS ORDERED: DIPHENHYDRAMINE 50MG CAPSULE PO PRN (22:30)
[2019-09-03] MEDS: NITROGLYCERIN OINT 1GM/INCH UDPKT TD SCH (22:37)
[2019-09-03] MEDS ORDERED: DIPHENHYDRAMINE 50MG/ML VIAL IV PRN (22:42)
[2019-09-04] VITALS (7 sets, daily range): BP systolic 104–132; BP diastolic 51–84
[2019-09-04] MEDS: HYDROMORPHONE HCL/PF 2MG/ML CPJ IM PRN ×2 (02:20→11:21)
[2019-09-04] MEDS: NITROGLYCERIN OINT 1GM/INCH UDPKT TD SCH ×2 (06:21→13:13)
[2019-09-04] MEDS ORDERED: CARISOPRODOL 350 MG TABLET PO PRN (07:45)
[2019-09-04] MEDS ORDERED: PREDNISONE 20MG TABLET PO SCH (09:00)
[2019-09-04] MEDS ORDERED: ASPIRIN 325MG EC TABLET PO SCH (09:00)
[2019-09-04] MEDS ORDERED: OLANZAPINE 5MG TABLET PO SCH (09:00)
[2019-09-04] MEDS ORDERED: ENOXAPARIN 40MG/0.4ML SYR SUBCUT SCH (09:00)
[2019-09-04] MEDS: SULFASALAZINE 500MG TABLET PO SCH ×2 (09:14→13:12)
[2019-09-04] MEDS: RISPERIDONE 1MG TABLET PO SCH (09:14)
[2019-09-04] MEDS: METOPROLOL TARTRATE 25MG TABLET PO SCH (09:14)
[2019-09-04 15:36] LABS: *AMPHETAMINES SCREEN URINE NEGATIVE (NEGATIVE); *BARBITURATES SCREEN URINE NEGATIVE (NEGATIVE); *BENZODIAZEPINES SCREEN URINE NEGATIVE (NEGATIVE); *COCAINE SCREEN URINE NEGATIVE (NEGATIVE)
[2019-09-04 15:37] LABS: CANNABINOID URINE SCREEN PRESUMTIVE POSITIVE (NEGATIVE); METHADONE URINE SCREEN NEGATIVE (NEGATIVE); OPIATES URINE SCREEN PRESUMTIVE POSITIVE (NEGATIVE); PHENCYCLIDINE URINE SCREEN NEGATIVE (NEGATIVE)
== END 2019-09-04 14:15 | disposition left against medical advice (07) | DRG 203 ==
LOC: ER 14:18 → 5EST 16:00 → EDBEDREQ 16:06 → EDBEDREQSVC 16:06 → ENRESERV 16:46
PROVIDERS: ADMIT Internal Medicine; ATTEND Internal Medicine
DX: M94.0 Chondrocostal junction syndrome [Tietze] (principal); F20.9 Schizophrenia, unspecified; I25.110 Atherosclerotic heart disease of native coronary artery with unstable angina pectoris; R07.89 Other chest pain; J44.9 Chronic obstructive pulmonary disease, unspecified; Z53.29 Procedure and treatment not carried out because of patient's decision for other reasons; K50.90 Crohn's disease, unspecified, without complications; I10 Essential (primary) hypertension; I25.2 Old myocardial infarction; Z95.1 Presence of aortocoronary bypass graft
CPT/HCPCS: 36415; 71045; 80305; 80307; 80320; 80329; 83880; 84484; 93005; 96365; 99291; J1170; J1200; J1644; J1650; J2270; J2405; J7512; G0480

== ENCOUNTER 2021-06-29 08:53 | Emergency (ER) | payer MEDICAID ==
[~2021-06-29] VITALS: Ht 188 cm; Wt 65.0 kg
[~2021-06-29 08:53] MED LIST changes: +ASPI-1160 PO; +CLOP75TA15 PO; +COR6 PO; +LIP40 PO; +LOSA25TA3 PO; -Olanzapine PO; -P20 PO; -RISP2TAB22 PO; +RISP2TAB85 PO
[2021-06-29] MEDS ORDERED: HYDROCODONE/ACETAMINOPHEN 5/325MG TABLET PO ONE (09:45)
[2021-06-29] MEDS ORDERED: ASPIRIN 81MG TABLET PO ONE (09:45)
[2021-06-29] MEDS ORDERED: NITROGLYCERIN OINT 1GM/INCH UDPKT TD ONE (09:45)
[2021-06-29 10:15] LABS: EOSINOPHILS % 0.7 % (0.0-5.0); HEMOGLOBIN. 12.8 g/dL (14.0-18.0); LYMPHOCYTES % 40.7 % (20.0-50.0); MEAN CORPUSCULAR HEMOGLOBIN 29.4 pg (28.0-32.0); MEAN CORPUSCULAR VOLUME 87.6 fL (80.0-94.0); MEAN PLATELET VOLUME 7.9 fl (7.4-10.4); MONOCYTES % 10.1 % (2.0-8.0); NEUTROPHILS % 47.5 % (40.0-76.0); PLATELET 250 x1000/uL (130-400); RED BLOOD CELL COUNT 4.34 mill/uL (4.7-6.1); RED CELL DISTRIBUTION WIDTH 14.4 % (11.6-14.6)
[2021-06-29 10:22] LABS: CHLORIDE 107 mEq/L (98-107)
[2021-06-29 10:26] LABS: ETHANOL BLOOD < 10 mg/dL
[2021-06-29 12:19] LABS: *AMPHETAMINES SCREEN URINE NEGATIVE (NEGATIVE); *BARBITURATES SCREEN URINE NEGATIVE (NEGATIVE); *BENZODIAZEPINES SCREEN URINE NEGATIVE (NEGATIVE); *COCAINE SCREEN URINE NEGATIVE (NEGATIVE); OPIATES URINE SCREEN NEGATIVE (NEGATIVE)
[2021-06-29 12:20] LABS: CANNABINOID URINE SCREEN PRESUMTIVE POSITIVE (NEGATIVE); METHADONE URINE SCREEN NEGATIVE (NEGATIVE); PHENCYCLIDINE URINE SCREEN NEGATIVE (NEGATIVE)
[2021-06-29 13:10] VITALS: BP 105/70
[2021-06-29] MEDS ORDERED: NALOXONE HCL 0.4MG/ML VIAL IV PRN (14:00)
[2021-06-29] MEDS ORDERED: MORPHINE SULFATE 2 MG/ML CPJ (NOT FOR IM USE) IV NR (14:00)
== END 2021-06-29 14:40 | disposition left against medical advice (07) ==
LOC: ER 08:53 → ENRESERV 14:47 → CANBEDREQ 06-30 07:16
DX: R07.89 Other chest pain (principal); I11.0 Hypertensive heart disease with heart failure; I50.9 Heart failure, unspecified; Z90.49 Acquired absence of other specified parts of digestive tract
CPT/HCPCS: 36415; 71045; 80053; 80305; 80320; 83690; 83880; 84484; 85025; 93005; 99291; Z7610; G0480

== ENCOUNTER 2021-08-15 17:47 | Emergency (ER) | payer MEDICAID, OTHER ==
[~2021-08-15] VITALS: Ht 185.4 cm; Wt 91.0 kg
[~2021-08-15 17:47] MED LIST changes: -OLAN5TAB26 PO; +OLAN5TAB74 PO
[2021-08-15] MEDS ORDERED: HEPARIN 5000 UNITS/ML VIAL IV ONE (18:00)
[2021-08-15] MEDS ORDERED: ASPIRIN 325MG EC TABLET PO ONE (18:00)
[2021-08-15] MEDS ORDERED: ACETAMINOPHEN 325MG TABLET PO ONE (18:15)
[2021-08-15 18:28] LABS: BASOPHILS % 0.9 % (0.0-2.0); EOSINOPHILS % 2.1 % (0.0-5.0); HEMATOCRIT. 36.7 % (42.0-52.0); HEMOGLOBIN. 12.3 g/dL (14.0-18.0); LYMPHOCYTES % 41.6 % (20.0-50.0); MEAN CORPUSCULAR HEMOGLOBIN 29.3 pg (28.0-32.0); MEAN CORPUSCULAR VOLUME 87.5 fL (80.0-94.0); MEAN PLATELET VOLUME 8.4 fl (7.4-10.4); MONOCYTES % 13.4 % (2.0-8.0); PLATELET 201 x1000/uL (130-400); RED CELL DISTRIBUTION WIDTH 14.3 % (11.6-14.6)
[2021-08-15 18:37] LABS: CHLORIDE 111 mEq/L (98-107)
[2021-08-15 18:39] LABS: PARTIAL THROMBOPLASTIN TIME 22.7 sec (23.4-31.0); PROTHROMBIN TIME 10.7 sec (9.6-11.0)
[2021-08-15 19:00] LABS: CLARITY URINE CLEAR (CLEAR); COLOR URINE YELLOW (YELLOW); KETONES URINE TRACE (NEGATIVE); LEUKOCYTE ESTERASE URINE NEGATIVE (NEGATIVE); NITRITE URINE NEGATIVE (NEGATIVE); OCCULT BLOOD URINE 1+ (NEGATIVE); PROTEIN URINE NEGATIVE (NEGATIVE); SPECIFIC GRAVITY URINE 1.027 (1.005-1.030)
[2021-08-15 19:11] LABS: *BARBITURATES SCREEN URINE NEGATIVE (NEGATIVE); *BENZODIAZEPINES SCREEN URINE NEGATIVE (NEGATIVE); *COCAINE SCREEN URINE NEGATIVE (NEGATIVE)
[2021-08-15 19:12] LABS: *AMPHETAMINES SCREEN URINE NEGATIVE (NEGATIVE); CANNABINOID URINE SCREEN PRESUMTIVE POSITIVE (NEGATIVE); METHADONE URINE SCREEN NEGATIVE (NEGATIVE); OPIATES URINE SCREEN NEGATIVE (NEGATIVE); PHENCYCLIDINE URINE SCREEN NEGATIVE (NEGATIVE)
[2021-08-15] MEDS ORDERED: MAGNESIUM/ALUMINUM HYDROXIDE/SIMETHICONE 30ML UDC PO STA (19:19)
[2021-08-15] MEDS ORDERED: VISCOUS LIDOCAINE 2% 15 ML UDC PO STA (19:19)
[2021-08-15] MEDS ORDERED: ONDANSETRON HCL 4MG/2ML INJ IV ONE (19:30)
[2021-08-15 22:15] VITALS: BP 110/60
== END 2021-08-15 22:30 | disposition home or self-care (01) ==
LOC: ER 17:47
DX: R07.9 Chest pain, unspecified (principal); M79.674 Pain in right toe(s); K43.9 Ventral hernia without obstruction or gangrene; I11.0 Hypertensive heart disease with heart failure; I50.9 Heart failure, unspecified; E78.00 Pure hypercholesterolemia, unspecified; I25.2 Old myocardial infarction; F17.210 Nicotine dependence, cigarettes, uncomplicated; Z98.62 Peripheral vascular angioplasty status; Z98.890 Other specified postprocedural states
CPT/HCPCS: 36415; 71045; 80053; 80305; 81003; 83880; 84484; 85025; 85610; 85730; 93005; 96374; 96375; 99285; J1644; J2405

== ENCOUNTER 2022-06-13 18:04 | Emergency (ER) | payer MEDICAID, OTHER ==
[~2022-06-13] VITALS: Ht 188 cm; Wt 59.0 kg
[2022-06-13 21:54] LABS: CLARITY URINE CLEAR (CLEAR); COLOR URINE YELLOW (YELLOW); KETONES URINE TRACE (NEGATIVE); LEUKOCYTE ESTERASE URINE NEGATIVE (NEGATIVE); NITRITE URINE NEGATIVE (NEGATIVE); OCCULT BLOOD URINE TRACE (NEGATIVE); PROTEIN URINE NEGATIVE (NEGATIVE); UROBILINOGEN URINE 0.2 E.U./dL (0.2-1.0)
[2022-06-13 22:02] LABS: BASOPHILS % 0.8 % (0.0-2.0); HEMATOCRIT. 46.4 % (42.0-52.0); HEMOGLOBIN. 14.9 g/dL (14.0-18.0); LYMPHOCYTES % 38.1 % (20.0-50.0); MEAN CORPUSCULAR VOLUME 90.4 fL (80.0-94.0); MEAN PLATELET VOLUME 8.5 fl (7.4-10.4); MONOCYTES % 11.4 % (2.0-8.0); NEUTROPHILS % 48.7 % (40.0-76.0); PLATELET 207 x1000/uL (130-400); RED BLOOD CELL COUNT 5.13 mill/uL (4.7-6.1)
[2022-06-13 22:08] LABS: CHLORIDE 106 mEq/L (98-107)
[2022-06-13 23:27] VITALS: BP 125/78
== END 2022-06-13 23:27 | disposition home or self-care (01) ==
LOC: ER 18:04
DX: H92.23 Otorrhagia, bilateral (principal); I11.0 Hypertensive heart disease with heart failure; I50.9 Heart failure, unspecified; E78.00 Pure hypercholesterolemia, unspecified; I25.2 Old myocardial infarction; Z79.82 Long term (current) use of aspirin; Z86.73 Personal history of transient ischemic attack (TIA), and cerebral infarction without residual deficits; Z95.820 Peripheral vascular angioplasty status with implants and grafts; Z98.890 Other specified postprocedural states
CPT/HCPCS: 36415; 80048; 81003; 85025; 99283